=== PATIENT | female | born 1955 | race Caucasian/White ===

== ENCOUNTER 2019-05-12 08:35 | Emergency (ER) | payer MEDICARE, OTHER ==
[2019-05-12 09:02] LABS: BILIRUBIN,URINE NEGATIVE (NEGATIVE); GLUCOSE, URINE (UA) NEGATIVE (NEGATIVE); KETONES,URINE (UA) TRACE mg/dL (NEGATIVE); LEUKOCYTE ESTERASE, URINE MODERATE (NEGATIVE); NITRITE,URINE NEGATIVE (NEGATIVE); OCCULT BLOOD,URINE LARGE (NEGATIVE); PROTEIN,URINE 100 mg/dL (NEGATIVE); UROBILINOGEN,URINE 0.2 (NORMAL) E.U./dL (NORMAL)
[2019-05-12 09:04] LABS: CLARITY,URINE CLOUDY (CLEAR)
[2019-05-12 09:14] LABS: BACTERIA,URINE Few /HPF (None Seen); RBC,URINE TNTC /HPF (0-5); SQUAMOUS EPITHELIAL CELL,UR FEW Squamous (<= Few)
--- NOTE | 2019-05-12 09:36 | ED Physician Documentation ---
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 She is felt some warmth but has not had a fever she has had some low back pain she has not had nausea or vomiting. Review of Systems Constitutional: denies: Fever Eyes: denies: Decreased vision Ears: denies: Ear pain Nose: denies: Congestion Throat: denies: Sore throat Cardiac: denies: Chest pain / pressure, Palpitations Respiratory: denies: Dyspnea, Cough GI: denies: Abdominal Pain, Nausea, Vomiting, Constipation, Diarrhea : reports: Dysuria, Frequency Skin: denies: Rash Musculoskeletal: reports: Back pain. denies: Neck pain PD PAST MEDICAL HISTORY - Past Medical History Cardiovascular: Valve disorder Endocrine/Autoimmune: Type 2 diabetes - Past Surgical History Past Surgical History: Yes General: Cholecystectomy /STONER HAND: Tubal ligation HEENT: Tonsil/Adenoidectomy - Present Medications Home Medications: Ambulatory Orders Medication Instructions Recorded Confirmed Aspirin [Children's Aspirin] 81 mg PO HS 03/27/13 03/27/13 B Complex with Vitamin C 1 each PO DAILY 03/27/13 03/27/13 [B-Complex Plus Vitamin C] Calcium Carbonate [Calci-Chew] 500 mg PO BID 03/27/13 03/27/13 Cholecalciferol (Vitamin D3) 1,000 unit PO DAILY 03/27/13 03/27/13 [Vitamin D] Docusate Sodium [Stool Softener] 2 tab PO 03/27/13 03/27/13 Glimepiride [Amaryl] 2 mg PO QDAC 03/27/13 03/27/13 Krill Oil/[place]-3/Dha/Epa [[place]-3 1 each PO DAILY 03/27/13 03/27/13 Krill Oil Softgel] Lisinopril [Prinivil] 5 mg PO DAILY 03/27/13 03/27/13 Multivitamin [[place] 2 each PO DAILY 03/27/13 03/27/13 Multivitamin] Mycophenolate Mofetil 1,000 mg PO BID 03/27/13 03/27/13 Pravastatin Sodium 20 mg PO QDAC 03/27/13 03/27/13 cephALEXin [Cephalexin] 500 mg PO TID #20 tablet 04/28/13 Sulfamethoxazole/Trimethoprim 1 each PO BID #14 tablet 05/12/19 [Sulfamethoxazole-Tmp Ds Tablet] - Allergies Allergies/Adverse Reactions: Allergies Allergy/AdvReac Type Severity Reaction Status Date / Time No Known Drug Allergies Allergy Verified 05/12/19 08:41 - Social History Does the pt smoke?: No Smoking Status: Never smoker Does the pt drink ETOH?: No Does the pt have substance abuse?: No - Immunizations Immunizations are current?: Yes - POLST Patient has POLST: No PD ED PE NORMAL - Vitals Vital signs reviewed: Yes (normal ) - General General: Alert and oriented X 3, No acute distress, Well developed/nourished - HEENT HEENT: Atraumatic, PERRL, EOMI - Neck Neck: Supple, no meningeal sign, No bony TTP - Respiratory Respiratory: No respiratory distress - Back Back: No CVA TTP, No spinal TTP, Other (There is mild tenderness to the paraspinous muscles of the lower lumbar spine ) - Derm Derm: Normal color, Warm and dry, No rash - Extremities Extremities: No deformity, No edema - Neuro Neuro: Alert and oriented X 3, 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, No motor deficit, No sensory deficit, Normal speech Eye Opening: Spontaneous Motor: Obeys Commands Verbal: Oriented GCS Score: 15 - Psych Psych: Normal mood, Normal affect Results - Vitals Vitals: Vital Signs - 24 hr 05/12/19 08:37 Temperature 35.9 C L Heart Rate 94 Respiratory 19 Rate Blood Pressure 126/51 L O2 Saturation 97 Oxygen O2 Source Room air - Labs Labs: Laboratory Tests 05/12/19 08:42 Urine Color YELLOW Urine Clarity CLOUDY Urine pH 6.0 Ur Specific [place] 1.025 Urine Protein 100 H Urine Glucose (UA) NEGATIVE Urine Ketones TRACE Urine Occult Blood LARGE H Urine Nitrite NEGATIVE Urine Bilirubin NEGATIVE Urine Urobilinogen 0.2 (NORMAL) Ur Leukocyte Esterase MODERATE H Urine RBC TNTC H Urine WBC >25 H Ur Squamous Epith Cells FEW Squamous Urine Bacteria Few Ur Microscopic Review INDICATED Urine Culture Comments INDICATED PD MEDICAL DECISION MAKING - ED course Complexity details: reviewed results, considered differential, d/w patient ED course: 63-year-old female with urinary symptoms has urinary tract infection on e valuation of the urine she does not have flank pain. She is given a prescription for sulfamethoxazole trimethoprim. Departure - Departure Disposition: Home, Self Care Clinical Impression: Urinary tract infection Qualifiers: Urinary tract infection type: acute cystitis Hematuria presence: without hematuria Qualified Code(s): N30.00 - Acute cystitis without hematuria Condition: Stable Instructions: ED UTI Cystitis Female Follow-Up: Your, doctor [Other] Prescriptions: Sulfamethoxazole/Trimethoprim [Sulfamethoxazole-Tmp Ds Tablet] 1 each PO BID #14 tablet
[2019-05-12 09:54] VITALS: BP 117/56
== END 2019-05-12 09:54 | disposition home or self-care (01) ==
LOC: ED 08:35
DX: N30.00 Acute cystitis without hematuria (principal); E11.9 Type 2 diabetes mellitus without complications; Z87.39 Personal history of other diseases of the musculoskeletal system and connective tissue; Z79.82 Long term (current) use of aspirin
CPT/HCPCS: 81001; 81003; 87086; 99283